=== PATIENT | female | born 2005 | race Caucasian/White ===

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

== ENCOUNTER → 2023-05-06 | Emergency (ER) | payer MEDICAID ==
[2023-05-06 02:16] VITALS: BP 121/84; PULSE 106; TEMP 97.8
== END ==
LOC: COL.ER 01:43
DX: Z04.41 Encounter for examination and observation following alleged adult rape (principal)